=== PATIENT | male | born 1945 | race Caucasian/White ===

== ENCOUNTER 2021-03-23 10:41 | Outpatient (CLI) | payer MEDICARE | END 2021-03-23 10:42 | disposition home or self-care (01) | LOC: CSHMRI 10:41 | PROVIDERS: ATTEND Urology | DX: C61 Malignant neoplasm of prostate (principal); C79.82 Secondary malignant neoplasm of genital organs; C77.9 Secondary and unspecified malignant neoplasm of lymph node, unspecified | CPT/HCPCS: 72197 ==

== ENCOUNTER 2021-09-12 09:24 | Outpatient (CLI) | payer MEDICARE ==
[2021-09-12] MEDS ORDERED: Magnevist 469MG/ML 20 ML VIAL ONE (10:06)
== END 2021-09-12 09:25 | disposition home or self-care (01) ==
LOC: CSHMRI 09:24
PROVIDERS: ATTEND Internal Medicine Hematology & Oncology
DX: C61 Malignant neoplasm of prostate (principal); R59.0 Localized enlarged lymph nodes
CPT/HCPCS: 72197